=== PATIENT | male | born 2005 | race Caucasian/White ===

== ENCOUNTER 2025-01-08 16:10 | Emergency (ER) | payer OTHER ==
[2025-01-08] MEDS: Diphtheria,Pertussis(Acell),Tetanus Vaccine 0.5 ML Syringe IM ONE (16:59)
== END 2025-01-08 17:05 | disposition home or self-care (01) ==
LOC: LL.ED 16:10
DX: S61.012A Laceration without foreign body of left thumb without damage to nail, initial encounter (principal); Z23 Encounter for immunization; Z79.899 Other long term (current) drug therapy; X58.XXXA Exposure to other specified factors, initial encounter; Y99.0 Civilian activity done for income or pay
CPT/HCPCS: 12002; 90471; 90715; 99282; 99282-25; J2003